=== PATIENT | male | born 1990 | race Caucasian/White ===

== ENCOUNTER 2023-05-05 09:39 | Outpatient (CLI) | payer OTHER ==
--- NOTE | 2023-05-05 12:54 | MRI Report ---
PROCEDURE: KNEE WO - LT INDICATIONS: LEFT KNEE PAIN TECHNIQUE: Noncontrast sagittal PD fast spin echo and T2 fast spin echo with fat saturation, sagittal 3-D gradie nt sequence with fat saturation; coronal T1 spin echo and PD fast spin echo with fat saturation, and axial PD fast spin echo with fat saturation through the knee. COMPARISON: None FINDINGS: Image quality: Good Menisci Medial: No discrete tear. Mild internal signal abnormality may be degenerative. Lateral: Intact. Meniscopopliteal fascicles maintained. Cruciate ligaments: There is moderate signal abnormality of the PCL, with indistinct appearance of th e mid ventral fibers. The meniscal femoral ligament appears to travel through the anterior PCL fibers . The ACL appears intact. Medial structures MCL: Mild periligamentous edema. Pes anserine tendons: Mild bursitis. Edema extends ventral to the medial gastrocnemius head. Semimembranosus: Intact Lateral structures LCL: Intact Biceps femoris: Intact IT band: Intact Popliteus tendon: Intact Anterior structures Extensor mechanism: Mild to moderate prepatellar edema. Fat pads: Mild Hoffa's fat pad edema. Medial retinaculum: Intact. Trochlea: Unremarkable morphology. Bone and joint Bones: No fracture, dislocation, or suspicious edema Cartilage: No full-thickness defect or subchondral edema. There is mild heterogeneity. Joint space: Mild joint effusion. Spencer's cyst: Suspected ruptured Spencer's cyst. Soft tissues: Unremarkable IMPRESSION: Partial tear and sprain of the PCL. The meniscal femoral ligament appears to traverse the anterior PC L fibers. The ACL appears intact. Possible sprain of the MCL. Mild to moderate prepatellar edema. Small joint effusion. Mild edema Hoffa's fat pad. Suspected ruptured Spencer's cyst. Reviewed by: Jin Thomas MD on 05/05/2023 12:52 PM PST Approved by: Jin Thomas MD on 05/05/2023 12:52 PM PST Station ID: [id number]
== END 2023-05-05 09:40 | disposition home or self-care (01) ==
LOC: DI 09:39
DX: S83.522A Sprain of posterior cruciate ligament of left knee, initial encounter (principal); M25.462 Effusion, left knee